=== PATIENT | male | born 1980 | race Caucasian/White ===

== ENCOUNTER 2024-12-13 11:43 | Emergency (ER) | payer MEDICAID ==
[~2024-12-13] VITALS: Ht 190.5 cm; Wt 177.0 kg
[2024-12-13 11:45] VITALS: O2SAT 98
[2024-12-13 11:47] VITALS: TEMP 36.7; O2SAT 99
[2024-12-13 16:40] LABS: BASOPHILS % 0.9 % (0.0-2.0); EOSINOPHILS % 3.7 % (0.0-5.0); HEMATOCRIT. 44.7 % (42.0-52.0); HEMOGLOBIN. 14.4 g/dL (14.0-18.0); LYMPHOCYTES % 23.8 % (20.0-50.0); MEAN CORPUSCULAR HEMOGLOBIN 29.4 pg (28.0-32.0); MEAN CORPUSCULAR HGB CONC 32.1 g/dL (31.0-37.0); MEAN CORPUSCULAR VOLUME 91.3 fL (80.0-94.0); MEAN PLATELET VOLUME 8.3 fl (7.4-10.4); MONOCYTES % 6.7 % (2.0-8.0); NEUTROPHILS % 64.9 % (40.0-76.0); PLATELET 321 x1000/uL (130-400); RED CELL DISTRIBUTION WIDTH 14.4 % (11.6-14.6); WHITE BLOOD COUNT 10.8 x1000/uL (4.5-11.0)
[2024-12-13 16:51] LABS: CHLORIDE 104 mEq/L (98-107); POTASSIUM 4.1 mEq/L (3.5-5.1); SODIUM 140 mEq/L (136-145)
[2024-12-13 16:52] LABS: CARBON DIOXIDE 29 mEq/L (21-32)
[2024-12-13 16:53] LABS: CALCIUM 9.4 mg/dL (8.7-10.4)
[2024-12-13 16:54] VITALS: BP 151/93; PULSE 98; RESP 14
[2024-12-13] MEDS: IBUPROFEN 600MG TABLET PO ONE (16:54)
[2024-12-13 16:58] LABS: CREATININE 1.1 mg/dL (0.6-1.3); GLUCOSE 95 mg/dL (70-105); UREA NITROGEN BLOOD 13 mg/dL (9-23)
[2024-12-13] MEDS ORDERED: IBUP-2029 MT (17:10)
[2024-12-13] MEDS ORDERED: ACET-2708 MT (17:11)
== END 2024-12-13 17:39 | disposition home or self-care (01) ==
LOC: ER 11:43
DX: M17.11 Unilateral primary osteoarthritis, right knee (principal); Z79.899 Other long term (current) drug therapy
CPT/HCPCS: 36415; 73560; 80048; 85025; 99284